=== PATIENT | male | born 1960 | race African-American/Black ===

== ENCOUNTER 2016-11-15 19:30 | Emergency (ER) | payer OTHER ==
[~2016-11-15] VITALS: Ht 182.9 cm; Wt 90.7 kg
[2016-11-15] MEDS ORDERED: FLUORESCEIN OPHTH TEST STRIP. ONE (20:00)
[2016-11-15] MEDS ORDERED: TETRACAINE 0.5% OPHTH SOLUTION 4ML BOTTLE. ONE (20:00)
[2016-11-15] MEDS ORDERED: TIMOLOL 0.5% OPHTH SOLUTION 5ML BOTTLE. OS ONE (20:30)
[2016-11-15] MEDS ORDERED: PILOCARPINE 1% OPHTH SOLUTION 15ML BOTTLE. OS ONE (20:30)
[2016-11-15] MEDS ORDERED: LATANOPROST 0.005% OPHTH SOLUTION 2.5ML BOTTLE. OS ONE (20:30)
[2016-11-15] MEDS ORDERED: LABETALOL 20 MG/4 ML DISP.SYRIN. IVP ONE (20:45)
[2016-11-15 20:50] VITALS: BP 171/100
--- NOTE | 2016-11-15 21:05 | PHYS DOC ---
Past Medical History Past Medical History: Glaucoma Past Surgical History: Other Additional Past Surgical Histo: "EXPLORATORY ABDOMINAL SURGERY" Alcohol Use: Heavy Drug Use: Marijuana Adult General Chief Complaint Chief Complaint: HYPERTENSION HPI HPI 56-year-old male presenting to the emergency department today with high blood pressure after being seen at a local detoxification unit and referred here her having blood pressure as above 200 reportedly. He reports last drinking today one can of beer. After discussing with the patient, the patient also reports having "I redness and pain over the past 2 days. He has a chronic history of glaucoma but over the past day and a half has had worsening acute redness swelling and loss of vision. His pain is sharp moderate intermittent and without alleviating factors. He reports previously he was able to count fingers and see light. Currently he reports not being able to see light. Review of systems is negative for nausea vomiting chest pain shortness of breath abdominal pain fevers or chills. All other review of systems is negative unless otherwise noted in history of present illness. ED course: 56-year-old gentleman presenting to the emergency department with hypertension however on examination the patient he had severe redness and swelling of his left thigh. Given his history of glaucoma and intraocular pressure was obtained 3 times and averaged about 80. I immediately called our gold beater Dr. Garcia. Unfortunately Dr. Garcia does not have access to a laser for potential eye without any and recommended the patient be transferred to the [facility]. Given these findings and the patient's acute vision loss the patient was emergently transferred to the [facility]. Accepting physician Dr. Wan. Stat ophthalmology consult in process. In the interim, I ordered for the administration of labetalol for the patient's high blood pressure and eye drops for the treatment of acute angle glaucoma. I attempted to get a second intraocular pressure read when the ambulance arrived. Unfortunately the Berhane-Pen was not functioning correctly (finicky) at that time and I felt that it was more important to not delay transfer for definitive care in order to obtain this reading so the patient was then transferred. Review of Systems Review of Systems SEE ABOVE. Current Medications Current Medications Current Medications Medications (Trade) Dose Ordered Sig/Roland Start Time Stop Time Status Last Admin Dose Admin Acetazolamide (Diamox) 500 mg 1X ONCE 11/15/16 20:30 11/15/16 20:31 DC 11/15/16 20:34 500 MG Fluorescein Sodium (Ful-Brandy) 1 strip STK-MED ONCE 11/15/16 20:00 11/15/16 20:01 DC Labetalol HCl (Normodyne) 20 mg 1X ONCE 11/15/16 20:45 11/15/16 20:46 DC Latanoprost (Xalatan) 1 drop 1X ONCE 11/15/16 20:30 11/15/16 20:31 DC 11/15/16 20:35 1 DROP Pilocarpine HCl (Pilocar) 1 drop 1X ONCE 11/15/16 20:30 11/15/16 20:31 DC 11/15/16 20:35 1 DROP Tetracaine HCl (Tetracaine) 40 drop STK-MED ONCE 11/15/16 20:00 11/15/16 20:01 DC Timolol Maleate (Timoptic 0.5% Ophth) 1 drop 1X ONCE 11/15/16 20:30 11/15/16 20:31 DC 11/15/16 20:35 1 DROP Allergies Allergies Allergies Coded Allergies Type Severity Reaction Last Updated Verified No Known Drug Allergies 11/15/16 No Physical Exam Physical Exam SEE ABOVE Constitutional: Well developed, well nourished, no acute distress, non-toxic appearance. [] HENT: Normocephalic, atraumatic, bilateral external ears normal, oropharynx moist, no oral exudates, nose normal. [] Eyes: Eye Exam : Visual Acuity: Left eye is unable to visualize light or hand movement. Visual Cunningham: Patient is unable to see visual cunningham and any direction. Lac ducts/glands: No swelling Lids w/ evertion: Normal, no foreign body Conj/[place]: Swollen and injected conjunctiva with hazy cornea Anterior Chamber: Hazy anterior chamber Tonopen readings: 80 Retina exam: No obvious abnormality The patient's left pupil is midsize with minimal reactivity. Neck: Normal range of motion, no tenderness, supple, no stridor. [] Cardiovascular:Heart rate regular rhythm, no murmur [] Lungs & Thorax: Bilateral breath sounds clear to auscultation [] Abdomen: Bowel sounds normal, soft, no tenderness, no masses, no pulsatile masses. [] Skin: Warm, dry, no erythema, no rash. [] Back: No tenderness, no CVA tenderness. [] Extremities: No tenderness, no cyanosis, no clubbing, ROM intact, no edema. [] Neurologic: Alert and oriented X 3, normal motor function, normal sensory function, no focal deficits noted. [] Psychologic: Affect normal, judgement normal, mood normal. [] Current Patient Data Vital Signs Vital Signs Date Time Temp Pulse Resp B/P (MAP) Pulse Ox O2 Delivery O2 Flow Rate FiO2 11/15/16 20:06 78 18 164/97 (119) 96 Room Air 11/15/16 19:47 97.5 97.5 EKG EKG [] Radiology/Procedures Radiology/Procedures [] Course & Med Decision Making Course & Med Decision Making Pertinent Labs and Imaging studies reviewed. (See chart for details) [] Dragon Disclaimer Dragon Disclaimer This electronic medical record was generated, in whole or in part, using a voice recognition dictation system. Departure Departure Impression: Primary Impression: Acute angle-closure glaucoma Additional Impression: Acute angle-closure glaucoma of left eye Disposition: TRANSFER [facility] ([facility]) Admitting Physician: Other (LOY) Condition: STABLE Referrals: NO PCP (PCP) Critical Care Time Critical care time was [40] minutes exclusive of procedures. Time was spent ordering the administration of topical eyedrops, discussing with consulting provider and transferring provider, documenting, and reevaluating the patient. Problem Qualifiers JAY ARGUELLO MD Nov 15, 2016 21:05
--- NOTE | 2016-11-16 09:44 | EKG ---
[facility] [address] [place] [address] Test Date: 2016-11-15 Test Time: 19:51:03 Pat Name: CHIKA GA Department: Room: Gender: M [employer]: : 1960 Requested By: JAY ARGUELLO Order Number: [id number] Reading MD: Olman Rubin Measurements Intervals [place] Rate: 85 P: 47 GA: 178 QRS: 16 QRSD: 88 T: 21 QT: 360 QTc: 434 Interpretive Statements SINUS RHYTHM LEFT ATRIAL ABNORMALITY ABNORMAL ECG Electronically Signed On 11-16-2016 15:09:49 CDT by Olman Rubin
== END 2016-11-15 20:50 | disposition short-term general hospital (02) ==
LOC: ER 19:30
DX: H40.212 Acute angle-closure glaucoma, left eye (principal); I10 Essential (primary) hypertension; F12.10 Cannabis abuse, uncomplicated
CPT/HCPCS: 93005; 96374; 99291; J3490

== ENCOUNTER → 2017-10-29 | Outpatient (CLI) | payer OTHER | END | disposition home or self-care (01) | LOC: RAD 13:51 | DX: M48.07 Spinal stenosis, lumbosacral region (principal); I10 Essential (primary) hypertension | CPT/HCPCS: 72100 ==